=== PATIENT | female | born 1980 | race Caucasian/White ===

== ENCOUNTER 2018-02-08 18:14 | Emergency (ER) | payer OTHER, MEDICAID ==
[~2018-02-08] VITALS: Ht 167.6 cm; Wt 64.9 kg
[~2018-02-08 18:14] MED LIST: ACETAMINOPHEN325 M1; BACTRIM DS TAB1 EACH PO; CIPRO250 M1 PO; CLEOCIN HCL300 MG PO; CLONAZEPAM 0.50.5 M1; CLONAZEPAM 0.50.5 M1 PO; CYMBALTA30 MG PO; DIFLUCAN150 MG PO; DOXYCYCLINE 10100 M1 PO; ERY-TAB500 MG PO; FLAGYL500 MG PO; FLEXERIL PO; HYDROCODON-ACE1 EAC7 PO; KEFLEX500 MG PO; MEDROL DOSPAK21 TAB PO; METROGEL-VAGINA70 GM VG; NOHOMEMEDICATIONS; NORCO 5-325 TA1 EACH PO; NORCO 7.5-3251 EACH PO; NORFLEX100 MG PO; PERCOCET 5-3251 EACH PO; PREDNISONE 20 M20 M1 PO; SILVADENE20 GM TP; TESSALON200 MG PO; TRAMADOL 50 MG50 MG; ULTRAM 50MG TAB50 MG PO; VICKS INHALER50 MG; VICODIN 5-3001 EACH PO; VICODIN 5-5001 EACH PO
[2018-02-08] MEDS ORDERED: TYLENOL EXTRA500 MG PO (18:27)
[2018-02-08 19:42] LABS: ABSOLUTE BASOPHILS 0.1 thou/uL (0.0-0.2); ABSOLUTE EOSINOPHILS 0.4 thou/uL (0.0-0.7); ABSOLUTE LYMPHOCYTES 2.6 thou/uL (0.8-5.3); ABSOLUTE MONOCYTES 0.4 thou/uL (0.0-1.2); ABSOLUTE NEUTROPHILS 4.6 thou/uL (1.6-8.1); EOSINOPHILS 4.7 %; HEMATOCRIT 44.3 % (37.0-47.0); HEMOGLOBIN 14.4 gm/dL (12.0-15.0); LYMPHOCYTES 32.2 %; MCH 30.1 pg (26.0-34.0); MCHC 32.5 g/dL (28.0-37.0); MCV 92.4 fL (80.0-100.0); MONOCYTES 4.5 %; MPV 9.6 fl. (7.2-11.1); NUCLEATED RBCS 0 /100WBC; PLATELET COUNT* 197 thou/uL (150-400); POLYS 57.6 %; RBC 4.79 mil/uL (4.20-5.00); RDW-CV 12.9 % (10.5-14.5)
[2018-02-08 19:50] LABS: CALCIUM 8.7 mg/dL (8.5-10.1); CREATININE 0.8 mg/dL (0.6-1.3); POTASSIUM 3.6 mmol/L (3.5-5.1)
[2018-02-08 19:55] LABS: ALBUMIN 4.1 g/dL (3.4-5.0); TOTAL BILIRUBIN 0.7 mg/dL (<0.1-1.0); TOTAL PROTEIN 8.3 g/dL (6.4-8.2)
[2018-02-08] MEDS ORDERED: BUTALB-APAP-CA1 EACH PO (20:51)
[2018-02-08] MEDS ORDERED: ONDANSETRON HCL4 M2 PO (20:51)
[2018-02-08 21:00] VITALS: BP 102/68
== END 2018-02-08 21:05 | disposition home or self-care (01) ==
LOC: M.ERS 18:14
PROVIDERS: Nurse Practitioner Family
DX: G43.009 Migraine without aura, not intractable, without status migrainosus (principal); F41.9 Anxiety disorder, unspecified; Z90.49 Acquired absence of other specified parts of digestive tract

== ENCOUNTER 2019-09-05 18:13 | Emergency (ER) | payer OTHER ==
[~2019-09-05] VITALS: Ht 167.6 cm; Wt 63.5 kg
[~2019-09-05 18:13] MED LIST changes: +BUTALB-APAP-CA1 EACH PO; +ONDANSETRON HCL4 M2 PO; +TYLENOL EXTRA500 MG PO
[2019-09-05 18:28] VITALS: BP 128/94
[2019-09-05] MEDS ORDERED: PREDNISONE 20 M20 MG PO (18:45)
[2019-09-05] MEDS ORDERED: EPIPEN0.3 MG/0.1 IM (18:45)
[2019-09-05] MEDS ORDERED: FAMOTIDINE 20 M20 MG PO (18:45)
== END 2019-09-05 18:49 | disposition home or self-care (01) ==
LOC: M.ERS 18:13
DX: R22.1 Localized swelling, mass and lump, neck (principal); T78.1XXA Other adverse food reactions, not elsewhere classified, initial encounter; G43.909 Migraine, unspecified, not intractable, without status migrainosus; Z98.51 Tubal ligation status; Z87.891 Personal history of nicotine dependence; Z88.6 Allergy status to analgesic agent; Z88.1 Allergy status to other antibiotic agents; X58.XXXA Exposure to other specified factors, initial encounter

== ENCOUNTER 2019-09-08 13:16 | Emergency (ER) | payer OTHER ==
[~2019-09-08] VITALS: Ht 170.2 cm; Wt 61.2 kg
[~2019-09-08 13:16] MED LIST changes: +EPIPEN0.3 MG/0.1 IM; +FAMOTIDINE 20 M20 MG PO; +PREDNISONE 20 M20 MG PO
[2019-09-08] MEDS ORDERED: VITAMIN C1000 MG PO (13:27)
[2019-09-08] MEDS ORDERED: BENADRYL25 MG PO (13:28)
[2019-09-08 14:48] LABS: ABSOLUTE BASOPHILS 0.1 thou/uL (0.0-0.2); ABSOLUTE LYMPHOCYTES 2.3 thou/uL (0.8-5.3); ABSOLUTE MONOCYTES 0.4 thou/uL (0.0-1.2); ABSOLUTE NEUTROPHILS 5.5 thou/uL (1.6-8.1); BASOPHILS 1.1 %; EOSINOPHILS 0.3 %; HEMATOCRIT 40.7 % (37.0-47.0); MCH 30.8 pg (26.0-34.0); MCHC 34.4 g/dL (28.0-37.0); MCV 89.7 fL (80.0-100.0); MONOCYTES 4.8 %; MPV 10.2 fl. (7.2-11.1); NUCLEATED RBCS 0 /100WBC; PLATELET COUNT* 208 thou/uL (150-400); POLYS 65.8 %; RBC 4.54 mil/uL (4.20-5.00); RDW-CV 12.8 % (10.5-14.5); WBC 8.4 thou/uL (4.0-11.0)
[2019-09-08 14:57] LABS: CALCIUM 9.2 mg/dL (8.5-10.1); POTASSIUM 3.4 mmol/L (3.5-5.1)
[2019-09-08 15:01] LABS: ALBUMIN 4.1 g/dL (3.4-5.0); TOTAL BILIRUBIN 0.9 mg/dL (<0.1-1.0); TOTAL PROTEIN 7.4 g/dL (6.4-8.2)
[2019-09-08] MEDS ORDERED: ZPAK PO (16:46)
[2019-09-08 16:55] VITALS: BP 120/81
== END 2019-09-08 16:56 | disposition home or self-care (01) ==
LOC: M.ERS 13:16
PROVIDERS: Physician Assistant
DX: J03.90 Acute tonsillitis, unspecified (principal); F41.9 Anxiety disorder, unspecified; G43.909 Migraine, unspecified, not intractable, without status migrainosus; Z88.6 Allergy status to analgesic agent; Z88.1 Allergy status to other antibiotic agents; Z87.891 Personal history of nicotine dependence

== ENCOUNTER 2020-02-05 16:54 | Emergency (ER) | payer OTHER, MEDICAID ==
[~2020-02-05] VITALS: Ht 167.6 cm; Wt 66.7 kg
[~2020-02-05 16:54] MED LIST changes: +BENADRYL25 MG PO; +VITAMIN C1000 MG PO; +ZPAK PO
[2020-02-05] MEDS ORDERED: BUTALB-APAP-CA1 EACH PO (19:16)
[2020-02-05] MEDS ORDERED: ONDANSETRON HCL4 M2 PO (19:16)
[2020-02-05 19:25] VITALS: BP 118/68
== END 2020-02-05 19:25 | disposition home or self-care (01) ==
LOC: M.ERS 16:54
DX: S06.0X0A Concussion without loss of consciousness, initial encounter (principal); G43.909 Migraine, unspecified, not intractable, without status migrainosus; Z98.51 Tubal ligation status; Z88.6 Allergy status to analgesic agent; Z88.1 Allergy status to other antibiotic agents; Z88.8 Allergy status to other drugs, medicaments and biological substances; Z87.891 Personal history of nicotine dependence; W22.8XXA Striking against or struck by other objects, initial encounter; Y93.89 Activity, other specified; Y92.89 Other specified places as the place of occurrence of the external cause; Y99.8 Other external cause status

== ENCOUNTER 2020-02-24 19:28 | Emergency (ER) | payer OTHER ==
[~2020-02-24] VITALS: Ht 170.2 cm; Wt 63.5 kg
[2020-02-24] MEDS ORDERED: ALLEGRA ALLERG180 MG (19:45)
[2020-02-24 20:03] LABS: URINE BILIRUBIN NEGATIVE (Negative); URINE BLOOD 2+ (Negative); URINE CLARITY CLEAR; URINE COLOR YELLOW; URINE GLUCOSE-RANDOM NEGATIVE (Negative); URINE KETONES NEGATIVE (Negative); URINE LEUKOCYTES-REFLEX NEGATIVE (Negative); URINE NITRITE-REFLEX NEGATIVE (Negative); URINE PROTEIN NEGATIVE (Negative); URINE SPECIFIC GRAVITY >= 1.030 (1.005-1.030); URINE UROBILINOGEN 0.2 E.U./dl (0.2-1.0)
[2020-02-24 20:07] LABS: ABSOLUTE BASOPHILS 0.1 thou/uL (0.0-0.2); ABSOLUTE EOSINOPHILS 0.3 thou/uL (0.0-0.7); ABSOLUTE LYMPHOCYTES 1.9 thou/uL (0.8-5.3); ABSOLUTE MONOCYTES 0.3 thou/uL (0.0-1.2); ABSOLUTE NEUTROPHILS 4.4 thou/uL (1.6-8.1); BASOPHILS 1.2 %; EOSINOPHILS 4.5 %; HEMATOCRIT 41.6 % (37.0-47.0); HEMOGLOBIN 14.6 gm/dL (12.0-15.0); MCH 31.3 pg (26.0-34.0); MCV 89.3 fL (80.0-100.0); MONOCYTES 4.7 %; MPV 9.3 fl. (7.2-11.1); NUCLEATED RBCS 0 /100WBC; PLATELET COUNT* 203 thou/uL (150-400); POLYS 62.6 %; RBC 4.66 mil/uL (4.20-5.00); RDW-CV 13.1 % (10.5-14.5)
[2020-02-24 20:12] LABS: MUCUS 4-6 Moderate strn/LPF (None Seen); SQUAMOUS >10 Many /LPF (0-3)
[2020-02-24 20:13] LABS: BACTERIA-REFLEX None Seen /HPF (None Seen); CASTS None Seen /LPF (None Seen); CRYSTALS None Seen /LPF (None Seen); URINE RBC 0-2 Rare /HPF (0-2); URINE WBC-REFLEX 0-5 Rare /HPF (0-5)
[2020-02-24 20:16] LABS: POTASSIUM 3.6 mmol/L (3.5-5.1)
[2020-02-24 20:21] LABS: MAGNESIUM 2.2 mg/dL (1.8-2.4); TOTAL BILIRUBIN 0.3 mg/dL (<0.1-1.0); TOTAL PROTEIN 7.9 g/dL (6.4-8.2)
[2020-02-24] MEDS ORDERED: HYDROCODON-ACE1 EAC7 PO (21:19)
[2020-02-24] MEDS ORDERED: CIPROFLOXACIN500 M1 PO (21:19)
[2020-02-24] MEDS ORDERED: ZOFRAN ODT4 MG PO (21:19)
[2020-02-24] MEDS ORDERED: FLAGYL500 M1 PO (21:19)
[2020-02-24 21:36] VITALS: BP 121/70
== END 2020-02-24 21:37 | disposition home or self-care (01) ==
LOC: M.ERS 19:28
PROVIDERS: Emergency Medicine
DX: K52.9 Noninfective gastroenteritis and colitis, unspecified (principal); G43.909 Migraine, unspecified, not intractable, without status migrainosus; Z87.891 Personal history of nicotine dependence; Z88.1 Allergy status to other antibiotic agents; Z88.6 Allergy status to analgesic agent; Z88.8 Allergy status to other drugs, medicaments and biological substances; Z98.51 Tubal ligation status

== ENCOUNTER 2020-02-26 00:51 | Inpatient (IN) | payer OTHER ==
[~2020-02-26] VITALS: Ht 170.2 cm; Wt 64.4 kg
--- NOTE | ~2020-02-26 | CON ---
[address] [address] CONSULTATION Name: BRITT BLANCO Room: [address] Anya#: [id number] Admission: 02/26/20 Attend Phys: Stephanie Sutton Discharge: Date of : 82 Report #: [id number] THIS REPORT FOR: //name// cc: Kendall Mohan Ahmad W. DO THIS REPORT FOR: //name// CC: Kendall Hameed DICTATED BY: Karyn ORTEZ DATE OF SERVICE: 02/26/2020 Please note at the time of this dictation, the patient was seen and physically examined by myself. REASON FOR CONSULTATION: Abdominal pain, diarrhea. HISTORY OF PRESENT ILLNESS: This is a 39-year-old female who had an abrupt onset of diarrhea that started on Wednesday, which she initially thought was related to food poisoning, however, nobody else in her family had this. She states she was going 4-6+ times a day. She states that she did note that it did wake her up with urgency first thing in the morning, but has not done it in the middle of the night. She has not noticed any bright red blood or any black stools at this time. She denies any issues with acid reflux or any difficulty swallowing. She describes her abdominal discomfort, which started on Wednesday, more on the left side. She states she did not have any abdominal discomfort until Wednesday, which got extremely worse, prompting her to come in. She did not have any nausea or vomiting until after she got Dilaudid in the ER and ever since then she has been very nauseated and has vomited, but now has some dry heaves with that. She has not had any further diarrheal stools since Wednesday prior to admission. The patient states that prior to Wednesday, her bowels moved soft and formed on a daily basis with no evidence of any bright red blood or any black stool. ALLERGIES: NSAIDs, AMOXICILLIN AND ASPIRIN. MEDICATIONS FROM HOME: Inna. PAST MEDICAL HISTORY: Back pain, history of anxiety and migraines. PAST SURGICAL HISTORY: Tubal ligation and cholecystectomy. FAMILY HISTORY: [place] [address] CONSULTATION Name: BRITT BLANCO Room: [address] [place] Joyner#: [id number] Admission: 02/26/20 Attend Phys: Stephanie Sutton Discharge: Date of : 82 Report #: [id number] SOCIAL HISTORY: She is . Past use of tobacco. Alcohol socially, last time she had any was a shot of Jerald Peng's on Wednesday, and denies any illegal drug use at this time. REVIEW OF SYSTEMS: Twelve-point review of systems is essentially negative except what is mentioned in the HPI. PHYSICAL EXAMINATION: VITAL SIGNS: Temperature 37, pulse 94, respirations 18, and blood pressure is 128/60. HEART: Regular rate and rhythm. LUNGS: Diminished, but clear. ABDOMEN: Soft, positive bowel sounds in all 4 quadrants with some left-sided tenderness in the left upper and mid to lower region. LABORATORY DATA: Hemoglobin is 9.2, white count 13.8, platelets 216. GFR is 56. Her LFTs are completely normal. CT of the abdomen and pelvis shows diffuse colonic wall thickening, ruling out infectious versus inflammatory. IMPRESSION: 1. Diarrhea. 2. A.m. urgency for stooling. 3. Abdominal pain. 4. Some nausea and vomiting. 5. Family history of psoriasis. PLAN: 1. Continue her IV fluids. 2. Clear liquid diet. 3. We will obtain stool samples for C. diff, O and P. 4. If nausea does not improve after the Dilaudid wears out of her system, can consider doing a colon prep; however, if it does not resolve, may need to have an EGD prior to starting any prep. 5. We will check CRP and ESR. 6. Further recommendations to be made once Dr. Gracia sees the patient later today. Thank you for allowing us to participate in this patient's care. Please do not hesitate to call with any questions in regard to this consult. By: [id number] Gracia DO /nt
[~2020-02-26 00:51] MED LIST changes: +ALLEGRA ALLERG180 MG; +CIPROFLOXACIN500 M1 PO; +FLAGYL500 M1 PO; +ZOFRAN ODT4 MG PO
[2020-02-26 01:38] LABS: ABSOLUTE BASOPHILS 0.1 thou/uL (0.0-0.2); ABSOLUTE EOSINOPHILS 0.1 thou/uL (0.0-0.7); ABSOLUTE LYMPHOCYTES 1.8 thou/uL (0.8-5.3); ABSOLUTE MONOCYTES 0.4 thou/uL (0.0-1.2); ABSOLUTE NEUTROPHILS 6.7 thou/uL (1.6-8.1); BASOPHILS 1.1 %; EOSINOPHILS 1.5 %; HEMATOCRIT 39.7 % (37.0-47.0); HEMOGLOBIN 13.8 gm/dL (12.0-15.0); LYMPHOCYTES 19.9 %; MCH 30.7 pg (26.0-34.0); MCHC 34.8 g/dL (28.0-37.0); MCV 88.2 fL (80.0-100.0); MONOCYTES 4.6 %; MPV 9.5 fl. (7.2-11.1); NUCLEATED RBCS 0 /100WBC; PLATELET COUNT* 216 thou/uL (150-400); POLYS 72.9 %; RDW-CV 12.8 % (10.5-14.5); WBC 9.2 thou/uL (4.0-11.0)
[2020-02-26 01:43] LABS: CALCIUM 8.3 mg/dL (8.5-10.1); CREATININE 1.1 mg/dL (0.6-1.3); POTASSIUM 3.3 mmol/L (3.5-5.1)
[2020-02-26 01:45] VITALS: BP 127/83
[2020-02-26 01:47] LABS: ALBUMIN 4.1 g/dL (3.4-5.0); TOTAL BILIRUBIN 0.7 mg/dL (<0.1-1.0); TOTAL PROTEIN 7.6 g/dL (6.4-8.2)
[2020-02-26 02:57] LABS: URINE BILIRUBIN NEGATIVE (Negative); URINE BLOOD 1+ (Negative); URINE CLARITY CLEAR; URINE COLOR YELLOW; URINE GLUCOSE-RANDOM NEGATIVE (Negative); URINE KETONES 1+ (Negative); URINE LEUKOCYTES-REFLEX NEGATIVE (Negative); URINE NITRITE-REFLEX NEGATIVE (Negative); URINE PROTEIN NEGATIVE (Negative); URINE SPECIFIC GRAVITY <= 1.005 (1.005-1.030); URINE UROBILINOGEN 0.2 E.U./dl (0.2-1.0)
[2020-02-26 03:26] VITALS: BP 137/72
[2020-02-26 03:30] LABS: CASTS None Seen /LPF (None Seen); SQUAMOUS 4-10 Moderate /LPF (0-3)
[2020-02-26 03:31] LABS: BACTERIA-REFLEX 1-9 Few /HPF (None Seen); CRYSTALS None Seen /LPF (None Seen); URINE RBC None Seen /HPF (0-2); URINE WBC-REFLEX 0-5 Rare /HPF (0-5)
[2020-02-26 03:45] VITALS: BP 136/67
--- NOTE | 2020-02-26 05:41 | NUR ---
ALERT AND ORIENTED X 4 FEMALE PATIENT TO BED 110 BY CART FROM ER IN STABLE. CONDITION. ADMISSION ROUTINES IN PROGRESS. RECEIVED SECOND DOSE OF DILAUDID JUST PRIOR TO TRANSPORT. PATIENT HAS HAD NAUSEA WITH EMESIS SINCE ARRIVAL. EMESIS SMALL AMOUNTS BROWN TO GREEN BILE AFTER ONE MODERATE AMOUNT. ZOFRAN PROVIDED AT THIS TIME. WILL REASSESS EFFECTIVENESS. LOW-GRADE TEMPERATURE 99.6. OTHER VITAL SIGNS STABLE. CONTINUE TO MONITOR.
[2020-02-26 07:30] VITALS: BP 108/60
[2020-02-26 15:11] VITALS: BP 112/64
--- NOTE | 2020-02-26 17:37 | NUR ---
A&OX 3, PWD. UP AD PIERCE IN ROOM WITH STEADY GAIT. PT ABLE TO EAT SOFT DIET WITH SOME DISCOMFORT IN ABD BUT NOT ENOUGH TO TAKE PAIN MEDICATION. AFTER THE NAUSEA AND VOMITING THIS AM PT IS AFRAID TO TAKE ANY PAIN MEDICATION. DID TAKE TYLENOL X 2 FOR HEAD ACHE. THINK IT IS FROM THE ANTIBOTIC MEDICATION. IV IN RIGHT FOREARM INTACT AND PATENT NS IN FUSING VIA PUMP AT 100MLS/HR. NO STOOL SAMPLE YET BUT PT IS AWARE SHE DOES NEED ONE. NO OTHER C/O AT THIS TIME WILL CONTINUE TO MONITOR.
[2020-02-26 19:54] VITALS: BP 114/80
[2020-02-27 04:54] LABS: HEMATOCRIT 33.1 % (37.0-47.0); MCH 31.1 pg (26.0-34.0); MCHC 35.1 g/dL (28.0-37.0); MCV 88.6 fL (80.0-100.0); MPV 10.1 fl. (7.2-11.1); RBC 3.73 mil/uL (4.20-5.00); RDW-CV 12.7 % (10.5-14.5); WBC 5.7 thou/uL (4.0-11.0)
[2020-02-27 05:05] LABS: HEMOGLOBIN 11.6 gm/dL (12.0-15.0)
[2020-02-27 05:20] LABS: CALCIUM 7.5 mg/dL (8.5-10.1); CREATININE 0.9 mg/dL (0.6-1.3); POTASSIUM 3.2 mmol/L (3.5-5.1); TOTAL BILIRUBIN 0.6 mg/dL (<0.1-1.0); TOTAL PROTEIN 5.8 g/dL (6.4-8.2)
--- NOTE | 2020-02-27 05:47 | NUR ---
PT A&OX4, ON ROOM AIR, UP AD PIERCE, VSS, IV FLUIDS INFUSING ORDERED, PAIN MEDS REQUESTED AND GIVEN ORDERED. 9/15AM POTASSIUM 3.2, ELECTROLYTE REPLACEMENT INITIATED ORDERED. NO BOWEL MOVEMENT THIS SHIFT. HOURLY ROUNDINGS COMPLETE, WILL CONTINUE TO MONITOR.
[2020-02-27 08:00] VITALS: BP 141/72
[2020-02-27] MEDS ORDERED: BENTYL 20 MG TA20 M1 PO (09:32)
[2020-02-27] MEDS ORDERED: TRANSDERM-SCOP1 EACH TRANSDERM (09:32)
[2020-02-27 09:46] VITALS: BP 114/80
[2020-02-27 11:02] VITALS: BP 114/80
--- NOTE | 2020-02-27 12:48 | NUR ---
ASSUMED CARE AT 0730. ALERT ORIENTED PLEASANT COOPERATIVE. HX OF COLITIS INTRACTABLE ABDOMINAL PAIN. PT. IS UP AD PIERCE IN ROOM. HASNT HAD A BM BUT DR. YI ORDERED MOM THIS A.M. IF SHE HAS A BM AND NO OTHER ISSUES SHE CAN BE DISCHARGED LATER TODAY. MEDICATED X 1 FOR ABDOMINAL PAIN PER PT. REQUEST. SL RT. WRIST AREA. APPETITE FAIRLY GOOD NO NAUSEA. HOURLY ROUNDING COMPLETED.
[2020-02-27 16:00] VITALS: BP 145/76
--- NOTE | 2020-02-27 16:01 | NUR ---
PT. HAS BEEN FLUIDS AND APPLE JUICE BUT NO BM YET SINCE MOM GIVEN EARLIER. ENCOURAGE AMBULATION IN ROOM AND FLUIDS TO GET BOWELS MOVING. STATES SOME DISCOMFORT BUT DOESNT REQUEST ANYTHING FOR IT. HOURLY ROUNDING COMPLETED.
[2020-02-27 17:05] VITALS: BP 114/80
--- NOTE | 2020-02-27 17:24 | NUR ---
DISMISSED AT 1705 WITH SCRIPTS D/C INSTRUCTIONS AND BELONGINGS VERBALIZED UNDERSTANDING OF INSTRUCTIONS. HAD 3 BMS BEFORE LEAVING UNIT.
== END 2020-02-27 17:10 | disposition home or self-care (01) | DRG 372 ==
LOC: M.ERS 00:51 → M.TBA-ER 02:06 → M.ORTHSURG 03:39
PROVIDERS: Emergency Medicine; Internal Medicine; ADMIT Internal Medicine; ATTEND Internal Medicine
DX: A04.9 Bacterial intestinal infection, unspecified (principal); R65.10 Systemic inflammatory response syndrome (SIRS) of non-infectious origin without acute organ dysfunction; Z20.828 Contact with and (suspected) exposure to other viral communicable diseases; G43.909 Migraine, unspecified, not intractable, without status migrainosus; F41.9 Anxiety disorder, unspecified; Z88.6 Allergy status to analgesic agent; Z88.1 Allergy status to other antibiotic agents; Z90.49 Acquired absence of other specified parts of digestive tract; Z98.51 Tubal ligation status; Z87.891 Personal history of nicotine dependence

== ENCOUNTER 2020-03-11 11:43 | Inpatient (IN) | payer OTHER ==
[~2020-03-11] VITALS: Ht 170.2 cm; Wt 64.0 kg
[~2020-03-11 11:43] MED LIST changes: +BENTYL 20 MG TA20 M1 PO; +TRANSDERM-SCOP1 EACH TRANSDERM
[2020-03-11 11:50] VITALS: BP 129/85
[2020-03-11 12:12] LABS: ABSOLUTE BASOPHILS 0.1 thou/uL (0.0-0.2); ABSOLUTE EOSINOPHILS 0.1 thou/uL (0.0-0.7); ABSOLUTE LYMPHOCYTES 1.3 thou/uL (0.8-5.3); ABSOLUTE MONOCYTES 0.3 thou/uL (0.0-1.2); ABSOLUTE NEUTROPHILS 9.3 thou/uL (1.6-8.1); BASOPHILS 0.5 %; EOSINOPHILS 1.1 %; HEMATOCRIT 42.6 % (37.0-47.0); HEMOGLOBIN 14.5 gm/dL (12.0-15.0); LYMPHOCYTES 11.8 %; MCH 30.4 pg (26.0-34.0); MCV 89.5 fL (80.0-100.0); NUCLEATED RBCS 0 /100WBC; PLATELET COUNT* 230 thou/uL (150-400); POLYS 83.6 %; RBC 4.76 mil/uL (4.20-5.00); RDW-CV 13.3 % (10.5-14.5); WBC 11.2 thou/uL (4.0-11.0)
[2020-03-11 12:18] LABS: CALCIUM 8.9 mg/dL (8.5-10.1); CREATININE 0.8 mg/dL (0.6-1.3); POTASSIUM 3.7 mmol/L (3.5-5.1)
[2020-03-11 12:22] LABS: TOTAL BILIRUBIN 0.5 mg/dL (<0.1-1.0); TOTAL PROTEIN 7.4 g/dL (6.4-8.2)
[2020-03-11 12:26] LABS: APTT 26.8 Seconds (25.0-31.3); PROTIME 10.5 Seconds (9.20-11.50)
[2020-03-11 12:41] LABS: URINE BILIRUBIN NEGATIVE (Negative); URINE BLOOD NEGATIVE (Negative); URINE CLARITY CLEAR; URINE COLOR YELLOW; URINE GLUCOSE-RANDOM NEGATIVE (Negative); URINE KETONES TRACE (Negative); URINE LEUKOCYTES-REFLEX NEGATIVE (Negative); URINE NITRITE-REFLEX NEGATIVE (Negative); URINE PROTEIN NEGATIVE (Negative); URINE UROBILINOGEN 0.2 E.U./dl (0.2-1.0)
[2020-03-11 14:30] VITALS: BP 107/78
[2020-03-11 16:05] VITALS: BP 119/77
[2020-03-11 20:30] VITALS: BP 121/75
[2020-03-12 04:44] LABS: ABSOLUTE BASOPHILS 0.1 thou/uL (0.0-0.2); ABSOLUTE EOSINOPHILS 0.2 thou/uL (0.0-0.7); ABSOLUTE LYMPHOCYTES 1.5 thou/uL (0.8-5.3); ABSOLUTE MONOCYTES 0.3 thou/uL (0.0-1.2); ABSOLUTE NEUTROPHILS 4.8 thou/uL (1.6-8.1); BASOPHILS 0.8 %; EOSINOPHILS 2.2 %; HEMATOCRIT 37.6 % (37.0-47.0); HEMOGLOBIN 12.9 gm/dL (12.0-15.0); LYMPHOCYTES 21.9 %; MCH 30.5 pg (26.0-34.0); MCHC 34.3 g/dL (28.0-37.0); MCV 88.9 fL (80.0-100.0); MONOCYTES 4.9 %; MPV 10.3 fl. (7.2-11.1); NUCLEATED RBCS 0 /100WBC; PLATELET COUNT* 183 thou/uL (150-400); POLYS 70.2 %; RBC 4.23 mil/uL (4.20-5.00); RDW-CV 13.2 % (10.5-14.5); WBC 6.9 thou/uL (4.0-11.0)
[2020-03-12 04:57] LABS: CREATININE 0.9 mg/dL (0.6-1.3); POTASSIUM 3.6 mmol/L (3.5-5.1)
[2020-03-12 07:30] VITALS: BP 126/88
[2020-03-12 22:30] VITALS: BP 120/74
[2020-03-13 08:20] VITALS: BP 106/77
--- NOTE | 2020-03-13 13:11 | CON ---
[address] [address] CONSULTATION Name: BELLABRITT LIAT Room: [address] [place] ..#: [id number] Admission: 03/11/20 Attend Phys: Rafael Headley MD Discharge: Date of : 82 Report #: [id number] THIS REPORT FOR: //name// cc: Kendall Mohan Ahmad W. DO ~ THIS REPORT FOR: //name// CC: Kendall Headley DATE OF SERVICE: 03/12/2020 HISTORY OF PRESENT ILLNESS: This is a pleasant 39-year-old female with a prior history of colitis, who is presenting with recurrent abdominal pain and hematochezia. The patient was diagnosed with colitis a few weeks back and was discharged on a course of Cipro and Flagyl. Her stools eventually improved. The patient was supposed to have an outpatient colonoscopy for this. Yesterday, she woke up with diarrhea and bloody stools. The patient also reports lower abdominal pain and cramps. She had about 4-5 bowel movements over the course of the day. The patient does report getting a sensation of fever or chills. The patient denies nausea, vomiting, or hematemesis. The patient has never had a colonoscopy in the past. PAST MEDICAL HISTORY: Migraines, anxiety. PAST SURGICAL HISTORY: Tubal ligation, cholecystectomy. SOCIAL HISTORY: The patient quit smoking in the past. Takes alcohol occasionally. FAMILY HISTORY: No family history of colon cancer or Toribio related neoplasia. REVIEW OF SYSTEMS: A comprehensive 10-point review of systems is negative except for what was mentioned in the HPI. PHYSICAL EXAMINATION: VITAL SIGNS: Temperature 37.1, pulse rate 82, respirations 18, blood pressure 126/88. GENERAL: The patient is alert, awake, oriented x 3. HEENT: Pupils are equal, round, reactive to light and accommodation. Mucous membranes are moist. There is no congestion. LUNGS: Clear to auscultation bilaterally. CARDIOVASCULAR: Rate and rhythm regular, S1, S2 present. ABDOMEN: Soft. There is no distention, guarding or rigidity. EXTREMITIES: Warm, well perfused. [place] [address] CONSULTATION Name: BRITT BLANCO Room: [address] [facility]#: [id number] Admission: 03/11/20 Attend Phys: Rafael Headley MD Discharge: Date of : 82 Report #: [id number] LABORATORY DATA: Hemoglobin 12.9, hematocrit 37.6, WBC count 6.9, platelet count 183. Clostridium difficile toxin positive. Sodium 140, potassium 3.6, chloride 107, bicarbonate 27, BUN 5, creatinine 0.9. INR 1. IMAGING: CT abdomen and pelvis, this demonstrates persistent abnormal colonic wall thickening involving descending and rectosigmoid colon consistent with colitis. Descending and transverse colon appeared improved compared to previous study. Finding also has free fluid in the pelvic cul-de-sac, likely reactive in nature. ASSESSMENT AND PLAN: Pleasant 39-year-old female who is presenting with Clostridium difficile colitis. The Clostridium difficile colitis is mild in severity. I would place the patient on vancomycin 125 mg p.o. four times a day for 14 days. Stop the meropenem. Follow up in the GI Clinic in 4-6 weeks. <ELECTRONICALLY SIGNED> By: Tim Holland MD 03/13/20 1311 [id number] Holland MD /nt
[2020-03-13 15:53] VITALS: BP 127/86
[2020-03-13 19:50] VITALS: BP 142/88
[2020-03-14 03:49] LABS: ABSOLUTE BASOPHILS 0.1 thou/uL (0.0-0.2); ABSOLUTE EOSINOPHILS 0.3 thou/uL (0.0-0.7); ABSOLUTE LYMPHOCYTES 1.9 thou/uL (0.8-5.3); ABSOLUTE MONOCYTES 0.4 thou/uL (0.0-1.2); ABSOLUTE NEUTROPHILS 3.7 thou/uL (1.6-8.1); BASOPHILS 1.4 %; EOSINOPHILS 4.4 %; HEMATOCRIT 37.9 % (37.0-47.0); HEMOGLOBIN 13.1 gm/dL (12.0-15.0); LYMPHOCYTES 29.7 %; MCH 30.9 pg (26.0-34.0); MCHC 34.6 g/dL (28.0-37.0); MCV 89.3 fL (80.0-100.0); MONOCYTES 6.3 %; MPV 9.6 fl. (7.2-11.1); NUCLEATED RBCS 0 /100WBC; PLATELET COUNT* 171 thou/uL (150-400); POLYS 58.2 %; RBC 4.24 mil/uL (4.20-5.00); RDW-CV 12.9 % (10.5-14.5); WBC 6.3 thou/uL (4.0-11.0)
[2020-03-14 04:09] LABS: ALBUMIN 3.3 g/dL (3.4-5.0); CALCIUM 8.4 mg/dL (8.5-10.1); CREATININE 0.8 mg/dL (0.6-1.3); POTASSIUM 3.5 mmol/L (3.5-5.1); TOTAL BILIRUBIN 0.5 mg/dL (<0.1-1.0); TOTAL PROTEIN 6.3 g/dL (6.4-8.2)
[2020-03-14 08:13] VITALS: BP 126/84
[2020-03-14] MEDS ORDERED: VANCOCIN 125 M125 M1 PO (10:28)
[2020-03-14 12:34] VITALS: BP 126/84
[2020-03-14 12:38] VITALS: BP 126/84
== END 2020-03-14 15:36 | disposition home or self-care (01) | DRG 372 ==
LOC: M.ERS 11:43 → M.ORTHSURG 12:33 → M.TBA-ER 12:33 → M.ORTHSURG 14:36 → M.3W 03-13 19:36
PROVIDERS: Family Medicine; ADMIT Internal Medicine; ATTEND Internal Medicine
DX: A04.71 Enterocolitis due to Clostridium difficile, recurrent (principal); K92.1 Melena; R65.10 Systemic inflammatory response syndrome (SIRS) of non-infectious origin without acute organ dysfunction; E44.0 Moderate protein-calorie malnutrition; Z20.828 Contact with and (suspected) exposure to other viral communicable diseases; F41.9 Anxiety disorder, unspecified; G43.909 Migraine, unspecified, not intractable, without status migrainosus; Z90.49 Acquired absence of other specified parts of digestive tract; Z88.6 Allergy status to analgesic agent; Z88.1 Allergy status to other antibiotic agents; Z88.8 Allergy status to other drugs, medicaments and biological substances; Z87.891 Personal history of nicotine dependence; Z68.22 Body mass index [BMI] 22.0-22.9, adult; Z79.899 Other long term (current) drug therapy

== ENCOUNTER 2020-04-16 08:26 | Emergency (ER) | payer OTHER ==
[~2020-04-16] VITALS: Ht 170.2 cm; Wt 63.5 kg
[~2020-04-16 08:26] MED LIST changes: +VANCOCIN 125 M125 M1 PO
[2020-04-16] MEDS ORDERED: HYDROCODON-ACE1 EAC7 PO (08:57)
[2020-04-16 10:14] VITALS: BP 126/72
== END 2020-04-16 10:14 | disposition home or self-care (01) ==
LOC: M.ERS 08:26
DX: S93.491A Sprain of other ligament of right ankle, initial encounter (principal); G43.909 Migraine, unspecified, not intractable, without status migrainosus; Z90.49 Acquired absence of other specified parts of digestive tract; Z98.51 Tubal ligation status; Z88.6 Allergy status to analgesic agent; Z88.1 Allergy status to other antibiotic agents; Z88.8 Allergy status to other drugs, medicaments and biological substances; Z91.013 Allergy to seafood; Z87.891 Personal history of nicotine dependence; W17.89XA Other fall from one level to another, initial encounter; Y93.39 Activity, other involving climbing, rappelling and jumping off; Y92.89 Other specified places as the place of occurrence of the external cause; Y99.8 Other external cause status

== ENCOUNTER 2020-12-19 08:22 | Emergency (ER) | payer OTHER ==
[~2020-12-19] VITALS: Ht 167.6 cm; Wt 63.5 kg
[2020-12-19] MEDS ORDERED: PREDNISONE 20 M20 M1 PO ×2 (08:55→09:33)
[2020-12-19] MEDS ORDERED: VANCOMYCIN HCL250 MG PO ×2 (08:55→09:33)
[2020-12-19 09:05] VITALS: BP 106/64
== END 2020-12-19 09:05 | disposition home or self-care (01) ==
LOC: M.ERS 08:22
DX: R10.84 Generalized abdominal pain (principal); R19.7 Diarrhea, unspecified; G43.909 Migraine, unspecified, not intractable, without status migrainosus; Z88.6 Allergy status to analgesic agent; Z88.1 Allergy status to other antibiotic agents; Z88.8 Allergy status to other drugs, medicaments and biological substances; Z91.013 Allergy to seafood; Z87.891 Personal history of nicotine dependence; Z90.49 Acquired absence of other specified parts of digestive tract; Z98.51 Tubal ligation status

== ENCOUNTER 2021-06-25 23:51 | Emergency (ER) | payer OTHER ==
[~2021-06-25] VITALS: Ht 170.2 cm; Wt 63.5 kg
[~2021-06-25 23:51] MED LIST changes: +VANCOMYCIN HCL250 MG PO
[2021-06-26 00:47] LABS: HEMATOCRIT 40.4 % (37.0-47.0); HEMOGLOBIN 13.2 gm/dL (12.0-15.0); MCH 29.3 pg (26.0-34.0); MCHC 32.5 g/dL (28.0-37.0); MPV 9.4 fl. (7.2-11.1); RBC 4.49 mil/uL (4.20-5.00); RDW-CV 13.4 % (10.5-14.5); WBC 6.5 thou/uL (4.0-11.0)
[2021-06-26 00:50] LABS: URINE BILIRUBIN NEGATIVE (Negative); URINE BLOOD NEGATIVE (Negative); URINE CLARITY CLEAR; URINE COLOR YELLOW; URINE GLUCOSE-RANDOM NEGATIVE (Negative); URINE KETONES NEGATIVE (Negative); URINE LEUKOCYTES-REFLEX NEGATIVE (Negative); URINE NITRITE-REFLEX NEGATIVE (Negative); URINE PROTEIN NEGATIVE (Negative); URINE UROBILINOGEN 0.2 E.U./dl (0.2-1.0)
[2021-06-26 00:54] LABS: CALCIUM 7.8 mg/dL (8.5-10.1); CREATININE 0.8 mg/dL (0.6-1.3); POTASSIUM 3.7 mmol/L (3.5-5.1)
[2021-06-26 00:59] LABS: AMP/METHAMP Negative (Negative); BARBITURATES Negative (Negative); BENZODIAZEPINES Negative (Negative); COCAINE Negative (Negative); METHADONE Negative (Negative); OPIATES Negative (Negative); PCP Negative (Negative); THC POSITIVE (Negative)
[2021-06-26 00:59] LABS: ALBUMIN 3.4 g/dL (3.4-5.0); TOTAL BILIRUBIN 0.3 mg/dL (<0.1-1.0); TOTAL PROTEIN 6.8 g/dL (6.4-8.2)
[2021-06-26 02:54] VITALS: BP 98/57
== END 2021-06-26 02:55 | disposition home or self-care (01) ==
LOC: M.ERS 23:51
PROVIDERS: Personal Emergency Response Attendant
DX: F10.920 Alcohol use, unspecified with intoxication, uncomplicated (principal); R11.2 Nausea with vomiting, unspecified; G43.909 Migraine, unspecified, not intractable, without status migrainosus; F41.9 Anxiety disorder, unspecified; Z98.51 Tubal ligation status; Z90.49 Acquired absence of other specified parts of digestive tract; Z79.2 Long term (current) use of antibiotics; Z79.899 Other long term (current) drug therapy; Z88.6 Allergy status to analgesic agent; Z88.8 Allergy status to other drugs, medicaments and biological substances; Z88.1 Allergy status to other antibiotic agents; Z91.013 Allergy to seafood; Z87.891 Personal history of nicotine dependence; Y90.7 Blood alcohol level of 200-239 mg/100 ml

== ENCOUNTER 2021-08-06 16:32 | Emergency (ER) | payer OTHER ==
[~2021-08-06] VITALS: Ht 167.6 cm; Wt 59.9 kg
[2021-08-06 17:20] LABS: ABSOLUTE BASOPHILS 0.1 thou/uL (0.0-0.2); ABSOLUTE EOSINOPHILS 0.3 thou/uL (0.0-0.7); ABSOLUTE LYMPHOCYTES 1.4 thou/uL (0.8-5.3); ABSOLUTE MONOCYTES 0.4 thou/uL (0.0-1.2); ABSOLUTE NEUTROPHILS 6.3 thou/uL (1.6-8.1); BASOPHILS 0.9 %; EOSINOPHILS 4.1 %; HEMOGLOBIN 13.3 gm/dL (12.0-15.0); LYMPHOCYTES 16.1 %; MCH 29.9 pg (26.0-34.0); MCHC 33.3 g/dL (28.0-37.0); MCV 89.9 fL (80.0-100.0); MONOCYTES 4.3 %; MPV 9.4 fl. (7.2-11.1); NUCLEATED RBCS 0 /100WBC; PLATELET COUNT* 219 thou/uL (150-400); POLYS 74.6 %; RBC 4.45 mil/uL (4.20-5.00); RDW-CV 13.5 % (10.5-14.5); WBC 8.4 thou/uL (4.0-11.0)
[2021-08-06 17:25] LABS: URINE BILIRUBIN NEGATIVE (Negative); URINE BLOOD NEGATIVE (Negative); URINE CLARITY CLEAR; URINE COLOR YELLOW; URINE GLUCOSE-RANDOM NEGATIVE (Negative); URINE KETONES NEGATIVE (Negative); URINE LEUKOCYTES NEGATIVE (Negative); URINE NITRITE NEGATIVE (Negative); URINE PROTEIN NEGATIVE (Negative); URINE SPECIFIC GRAVITY >= 1.030 (1.005-1.030); URINE UROBILINOGEN 0.2 E.U./dl (0.2-1.0)
[2021-08-06 17:30] LABS: CALCIUM 8.5 mg/dL (8.5-10.1); CREATININE 0.9 mg/dL (0.6-1.3); POTASSIUM 3.7 mmol/L (3.5-5.1)
[2021-08-06 17:34] LABS: ALBUMIN 3.8 g/dL (3.4-5.0); TOTAL BILIRUBIN 0.3 mg/dL (<0.1-1.0); TOTAL PROTEIN 7.4 g/dL (6.4-8.2)
[2021-08-06] MEDS ORDERED: METRONIDAZOLE500 M4 PO (20:10)
[2021-08-06 20:32] VITALS: BP 115/72
== END 2021-08-06 20:32 | disposition home or self-care (01) ==
LOC: M.ERS 16:32
PROVIDERS: Physician Assistant
DX: K52.9 Noninfective gastroenteritis and colitis, unspecified (principal); G43.909 Migraine, unspecified, not intractable, without status migrainosus; Z87.891 Personal history of nicotine dependence; Z88.1 Allergy status to other antibiotic agents; Z88.6 Allergy status to analgesic agent; Z91.013 Allergy to seafood; Z90.49 Acquired absence of other specified parts of digestive tract; Z98.51 Tubal ligation status